=== PATIENT | female | born 2000 | race African-American/Black ===

== ENCOUNTER 2022-11-25 15:22 | Outpatient (CLI) | payer OTHER, SELFPAY ==
[2022-11-25 18:03] LABS: HIV 1/2 Ab P24 Ag Result Negative (Negative)
[2022-11-25 18:50] LABS: Hepatitis B Surface Antigen Negative (Negative)
[2022-11-25 18:54] LABS: HAV RESULT Negative (Negative); Hepatitis B Core IgM Result Negative (Negative)
[2022-11-25 19:11] LABS: Hepatitis C Virus Antibody Negative (Negative)
[2022-11-26 14:19] LABS: Rapid Plasma Reagin Non-Reactive (NonReactive)
== END 2022-11-25 15:23 | disposition home or self-care (01) ==
LOC: ANHLAB 15:24
PROVIDERS: Visit Provider Obstetrics & Gynecology
DX: Z20.2 Contact with and (suspected) exposure to infections with a predominantly sexual mode of transmission (principal)
CPT/HCPCS: 36415; 80074; 86592; 86695; 86696; 86703; G0432

== ENCOUNTER 2024-06-29 09:55 | Outpatient (CLI) | payer OTHER, SELFPAY ==
--- OUTSIDE RECORDS SUMMARY | 2024-06-29 10:00 | XMS_ITS | Clinical Summary ---
Author Organization [facility] Address [address] [place] [address] Care Team Providers Care General Office Dispatcher Name Role Phone Braeden Fuentes MD Primary Care Provider [phone] Source Comments [facility],non-owned Affiliates and Associated Physician Practices is amultiple site organization consisting of ambulatory clinics and hospital sitesin [place], [place], [place] and [place]. This disclosure is being madepursuant to the Care Everywhere program and may not contain all information available regarding this patient. Last updated 17.[facility] [employer] Allergies No known active allergies Medications * This document contains information received from the source organization and may not represent a complete record from that organization. * Be aware that medications may not be up to date on this document. Alwaysverify current medications with the patient. acetaminophen (TYLENOL) 325 MG tablet Take 2 Tabs by mouth every 4 hours as needed for Fever or Pain Maximum allowable Acetaminophen amount = 4 Grams (4000 mg) / 24 hours. 120 Tab 0 5 Active ibuprofen (MOTRIN) 400 MG tablet Take 400 mg by mouth every 6 hours as needed for Pain Active ergocalciferol (DRISDOL) 1.25 MG (43004 UT) capsuleIndicat ions:Vitamin D Deficiency Take 1 capsule by mouth every 7 days Reasons: Vitamin D Deficiency 4 capsule 2 9 Active TOMASZ 0.25-35 MG-MCG tablet TAKE 1 TABLET BY MOUTH ONCE DAILY. TAKE ONLY 4 OF THE PLACEBOS PILLS 28 tablet 12/02/202 0 Active Active Problems Problem Noted Date Diagnosed Date Obesity 04/28/2016 Assessment & Plan (04/28/2016 8:21 AM CDT): Weight and BMI >99th %tile. Plan: Discussed healthy diet and exercise with patient. Discussed starting with some daily exercise a few minutes a day and then building on this to add more time (walking, taking stairs, etc) Discussed cutting out sugary drinks, fast food and fried foods. Will continue to monitor. PCOS (polycystic ovarian syndrome) 04/27/2016 Assessment & Plan (04/27/2016 4:11 PM CDT): History of PCOS, well controll with OCP's Plan: Will recheck total testosterone, free testosterone, hgb A1c, lipid panel and H & H today Refill for OCP's sent to pharmacy Dysmenorrhea 04/27/2016 Assessment & Plan (04/27/2016 4:12 PM CDT): Pt reports moderate cramping with nausea with periods. Plan: Rx for naproxen 500mg BID PRN sent to pharmacy, patient to start medication on the day prior to the start of her menses Will check vitamin D level today Vitamin D deficiency 08/29/2014 Assessment & Plan (08/29/2014 12:45 PM CDT): Assessment: 13 y/o with menometorrhagia, anemia, vitD deficiency Plan: -50,000 IU vitD once weekly x 6 weeks Excessive vaginal bleeding 08/27/2014 Assessment & Plan (08/29/2014 4:17 PM CDT): Assessment: Nehemiah Rock is a 13 yo previously healthy female who presented with 2 weeks of heavy menstrual flow. Menarche was one year ago and has been predictable monthly with 3 days of flow 2 pads/day. Her last two periods had prolonged bleeding. Denies history of sexual intercourse and does not take contraceptives. No history of bleeding problems or family history of bleeding disorders. No family history of uterine cancer, thyroid disorders, PCOS, or DM2. Differential for abnormal uterine bleeding includes polyps, adenomyositis, leiomyomata, malignancy/hyperplasia, coagulopathy, ovulatory dysfunction, endometrial, iatrogenic, and not otherwise specified. - coagulation labs show decreased PTT with normal PT, vWF panel is pending - pelvic ultrasound suggests presence of endometrial polyp vs blood clot, no adnexal masses noted, ovaries not abnormally polycystic - Given weight, acanthosis, and irregularity of periods she may have PCOS which can cause prolonged menstrual bleeding Plan: - adolescent medicine consulted, recommendations appreciated - follow up on vWF panel, Free and total testosterone, DHEAS - provide vitamin D supplement for low levels - provide second daily dose of Ovral tonight and then continue once daily starting tomorrow - schedule zofran for management of nausea - Discharge today with follow up Hgb/Hct in 1 weeks and follow up with adolescent on 09/[address] Brantley. Assessment & Plan (08/29/2014 12:44 PM CDT): Assessment: 13 y.o female with no significant PMHx presenting with prolonged vaginal bleeding and a severe microcytic anemia. Patient reports normal menstrual periods for the past year but endorses occasional heavy bleeding and irregularities in her cycle. A potential cause of her bleeding is anovulatory cycle secondary to PCOS as she does have obese body habitus and acanthosis, both consistent with this diagnosis. Bleeding disorder is unlikely as she has no history of excessive bleeding and PT/PTT were WNL. Her hemoglobin continues to fall despite her bleeding slowing down and her treatment with ethinyl estradiol. Received 2 units PRBC overnight. Plan: -Per adolescent medicine recommendations: -Check: Vitamin D 25-0H, total and free testosterone, TSH, and DHEAS -Check urine GC + Chlamydia -consulted adolescent medicine -norgestrel ethinyl estradiol 0.5-50mcg in AM (BID for 24 hours after bleeding stops) -PRN Zofran IV for nausea secondary to high-dose estrogen -Von Willebrand profile pending Assessment & Plan (08/28/2014 7:09 PM CDT): Assessment: 13 y.o female with no significant PMHx presenting with prolonged vaginal bleeding and a severe microcytic anemia. Patient reports normal menstrual periods for the past year but endorses occasional heavy bleeding and irregularities in her cycle. A potential cause of her bleeding is anovulatory cycle secondary to PCOS as she does have obese body habitus and acanthosis, both consistent with this diagnosis. Bleeding disorder is unlikely as she has no history of excessive bleeding and PT/PTT were WNL. Her hemoglobin continues to fall despite her bleeding slowing down and her treatment with ethinyl estradiol. Plan: -Per adolescent medicine recommendations: -Check: Vitamin D 25-0H, total and free testosterone, TSH, and DHEAS -Check urine GC + Chlamydia -Transfusing 2 units packed RBCs for low Hb -consulted adolescent medicine -stop estradiol, give norgestrel ethinyl estradiol 0.5-50mcg once tonight and once tomorrow AM -Patient may need BID until bleeding stops, can give up to q8hrs -PRN Zofran IV for nausea secondary to high-dose estrogen -Von Willebrand profile pending Assessment & Plan (08/28/2014 6:16 PM CDT): Assessment: 13 y/o female with prolonged vaginal bleeding for the past 2 weeks with history of previously normal menses. Most likely etiologies on the differential diagnosis in this patient would be dysfunction uterine bleeding or PCOS, especially as patient is obese and has acanthosis on exam. related complications ruled out with negative serum HCG. Bleeding disorders or coagulopathies also possible, though less likely given negative history of previous bleeding problems. Infection unlikely as patient is not currently having fever, abdominal pain, dysuria, or abnormal vaginal discharge. Also, CBC with normal WBC count. Other possibilities include ovarian cysts, cervical polyps, or malignancies. Plan: -admit to purple team -will start norethindrone-ethinyl estradiol (35 mcg estradiol which is lowest formulation of estradiol available on formulary) BID until bleeding cessation. Would then plan to continue on oral contraceptives once/day. -If persistent bleeding despite therapy can increase frequency of dose -zofran PRN IV while on high doses of estrogen for nausea/emesis -will draw coag panel and Von Willebrand profile to look for other causes of prolonged bleeding -consider adolescent medicine consult in AM Assessment & Plan (08/28/2014 3:21 PM CDT): Assessment: Nehemiah Rock is a 13 yo previously healthy female who presented with 2 weeks of heavy menstrual flow. Menarche was one year ago and has been predictable monthly with 3 days of flow 2 pads/day. Her last two periods had prolonged bleeding. Denies history of sexual intercourse and does not take contraceptives. No history of bleeding problems or family history of bleeding disorders. No family history of uterine cancer, thyroid disorders, PCOS, or DM2. Differential for abnormal uterine bleeding includes polyps, adenomyositis, leiomyomata, malignancy/hyperplasia, coagulopathy, ovulatory dysfunction, endometrial, iatrogenic, and not otherwise specified. - coagulation labs show decreased PTT with normal PT, vWF panel is pending - pelvic ultrasound suggests presence of endometrial polyp vs blood clot, no adnexal masses noted, ovaries not abnormally polycystic Plan: - consult adolescent medicine - follow up on vWF panel - continue norethindrone-ethinyl estradiol 1mg-35mcg BID to help stop uterine bleeding - schedule zofran for management of nausea - consider drawing TSH/free T4, FSH, LH to evaluate for thyroid abnormalities and PCOS Assessment & Plan (08/27/2014 11:42 PM CDT): Assessment: 13 y/o female with prolonged vaginal bleeding for the past 2 weeks with history of previously normal menses. Most likely etiologies on the differential diagnosis in this patient would be dysfunction uterine bleeding or PCOS, especially as patient is obese and has acanthosis on exam. related complications ruled out with negative serum HCG. Bleeding disorders or coagulopathies also possible, though less likely given negative history of previous bleeding problems. Infection unlikely as patient is not currently having fever, abdominal pain, dysuria, or abnormal vaginal discharge. Also, CBC with normal WBC count. Other possibilities include ovarian cysts, cervical polyps, or malignancies. Plan: -admit to purple team -will start norethindrone-ethinyl estradiol (35 mcg estradiol which is lowest formulation of estradiol available on formulary) BID until bleeding cessation. Would then plan to continue on oral contraceptives once/day. -If persistent bleeding despite therapy can increase frequency of dose -zofran PRN IV while on high doses of estrogen for nausea/emesis -will draw coag panel and Von Willebrand profile to look for other causes of prolonged bleeding -consider adolescent medicine consult in AM Microcytic anemia 08/27/2014 Assessment & Plan (08/29/2014 4:21 PM CDT): Assessment: Nehemiah has had 2 weeks of heavy menstrual flow with complaints of light headedness and headaches. Her Hgb/Hct dropped from 5.2/18.4 to 4.8/16.9 after which she was transfused with two units of blood. She recovered to 7.9/25.7 overnight. Vital signs have been within normal limits thoroughout the day and patient appears to be feeling much better. She is anemic with an MCV of 65.9 indicating that she has a microcytic anemia. Most commonly these are caused by iron deficiency though anemia of chronic disease, thalassemia, and sideroblastic anemia should be considered on the differential. Blood loss also contributes to the anemia. Plan: - continue iron supplementation 325mg daily for 3 months - repeat Hgb/Hct in one week as outpatient - follow up with adolescent health Assessment & Plan (08/29/2014 12:44 PM CDT): Assessment: 13 y/o female with microcytic anemia most likely secondary to blood loss from prolonged menses. She is asymptomatic here but did complain of dizziness and light-headedness at OSH. Plan: -transfused 2 units PRBCs -Ferrous sulfate 325 mg BID Assessment & Plan (08/28/2014 7:05 PM CDT): Assessment: 13 y/o female with microcytic anemia most likely secondary to blood loss from prolonged menses. She is asymptomatic here but did complain of dizziness and light-headedness at OSH. Plan: -transfusing 2 units PRBCs -repeat H&H in AM -Ferrous sulfate 325 mg BID Assessment & Plan (08/28/2014 6:16 PM CDT): Assessment: 13 y/o female with symptomatic microcytic anemia most likely secondary to blood loss from prolonged menses. Symptomatic at OSH but received 1L NS bolus and now asymptomatic with normal HRs, blood pressures, and normal orthostatic vital signs. Plan: -CBC now -type/cross match 2 units PRBCs. If patient develops further symptoms such as light-headedness, headache, dizziness, tachycardia, or orthostatic vital signs, will plan on transfusing 2 units PRBCs -will start estrogen therapy (see separate problem) -repeat H&H in AM -will start supplemental iron therapy -no IVF at this point as patient taking good PO intake so far since admission Assessment & Plan (08/28/2014 3:40 PM CDT): Assessment: Nehemiah has had 2 weeks of heavy menstrual flow with complaints of light headedness and headaches. Her Hgb/Hct has dropped from 5.7/20.1 to 5.2/18.4 but has remained without headaches and dizziness since admission. Her oxygen saturation is 99% on room air and her heart rate has been within normal limits. She has not received blood producs but had a 1L NS bolus at OSH. BP has been stable WNL. She is anemic with an MCV of 65.9 indicating that she has a microcytic anemia. Most commonly these are caused by iron deficiency though anemia of chronic disease, thalassemia, and sideroblastic anemia should be considered on the differential. Blood loss also contributes to the anemia. Plan: - continue iron supplementation 325mg daily for 3 months - repeat Hgb/Hct this afternoon and tomorrow morning to monitor extent of anemia - transfuse 1-2 units pRBC if hgb below 5 or if below 7 with symptoms such as orthostasis, dyspnea, light headedness Assessment & Plan (08/27/2014 11:45 PM CDT): Assessment: 13 y/o female with symptomatic microcytic anemia most likely secondary to blood loss from prolonged menses. Symptomatic at OSH but received 1L NS bolus and now asymptomatic with normal HRs, blood pressures, and normal orthostatic vital signs. Plan: -CBC now -type/cross match 2 units PRBCs. If patient develops further symptoms such as light-headedness, headache, dizziness, tachycardia, or orthostatic vital signs, will plan on transfusing 2 units PRBCs -will start estrogen therapy (see separate problem) -repeat H&H in AM -will start supplemental iron therapy -no IVF at this point as patient taking good PO intake so far since admission Family History Medical History Relation Name Comments Type 2 Diabetes Mellitus Maternal Aunt sh e states that she can not get Type 2 Diabetes Mellitus Maternal Grandmother Menstrual issues Mother Other Paternal Grandmother small tumor on brain per father Asthma Neg Hx Inflammatory Bowel Disease Neg Hx Relation Name Status Comments Maternal Aunt Maternal Grandmother Mother Paternal Grandmother Social History Tobacco Use Types Packs/Day Years Used Date Smoking Tobacco: Never Smokeless Tobacco: Never Tobacco Cessation:Counseling Given: No Alcohol Use Standard Drinks/Week Comments No 0 (1 standard drink = 0.6 oz pur e alcohol) Comments No Sex and Gender Information Value Date Recorded Sex Assigned at Not on file Legal Sex Female 5:40 AM IMPLEMENTATION MANAGER Gender Identity Not on file Sexual Orientation Not on file Last Filed Vital Signs Vital Sign Reading Time Taken Comments Blood Pressure 122/64 03/06/2019 2:02 PM IMPLEMENTATION MANAGER Pulse 68 03/06/2019 2:02 PM IMPLEMENTATION MANAGER Temperature 36.7 C (98 F) 10/30/2016 3:21 PM CDT Respiratory Rate 18 01/08/2019 11:1 1 AM IMPLEMENTATION MANAGER Oxygen Saturation 99% 10/05/2014 4:13 PM CDT Inhaled Oxygen Concentration - - Weight 116.3 kg (256 lb 6.3 oz) 03/06/2019 2:02 PM IMPLEMENTATION MANAGER Height 163.5 cm (5' 4.37 ) 03/06/2019 2:02 PM CS T Body Mass Index 43.51 03/06/2019 2:02 PM IMPLEMENTATION MANAGER Plan of Treatment Health Maintenance Due Date Last Done Comments HPV VACCINE (1 - 3-dose series) 11/22/2014 HEPATITIS C SCREENING 11/18/2017 DTAP/TDAP/TD VACCINES (1 - Tdap) 11/22/2018 HEPATITIS B VACCINE (1 of 3 - 19+ 3-dose series) 11/22/2018 CHLAMYDIA/GONORRHEA SCREENING 01/09/2020, 10/26/2016, 08/29/2014 COVID-19 VACCINE (1 - 2023-2 5 season) 2023 DEPRESSION SCREENING 02/08/2024 INFLUENZA VACCINE (Season Ended) 2024 ZOSTER VACCINE (1 of 2) 11/22/2049 HIV SCREENING Completed 01/08/2019 HIB VACCINE Aged Out No longer eligi ble based on patient's age to complete this topic MENINGOCOCCAL (Group B) VACCINE SHARED DECISION-MAKING Aged Out No longer eligible based on patient's age to complete this topic MENINGOCOCCAL GROUPS A/C/Y/W VACCINE Aged Out No longer eligible b ased on patient's age to complete this topic PNEUMOCOCCAL VACCINE Aged Out No long er eligible based on patient's age to complete this topic Procedures Procedure Name Priority Date/Time Associated Diagnosis Comments HIV-1 HIV-2 ANTIBODY + HIV P24 AG PANEL Routine 01/08/2019 12:13 PM IMPLEMENTATION MANAGER Menorrhagia with irregular cycle CHLAMYDIA + GC AMPLIFIED PROBE Routine 01/08/2019 12:00 PM IMPLEMENTATION MANAGER Menorrhagia with irregular cycle from Last 3 Months or Most Recently Relevant to Health Maintenance Results * HIV-1 HIV-2 ANTIBODY + HIV P24 AG PANEL (01/08/2019 12:13 PM IMPLEMENTATION MANAGER) HIV1/2 Ab + P24 Ag Non Reactive Non Reactive 01/08/2019 1:48 PM IMPLEMENTATION MANAGER [facility] Blood BLOOD SPECIMEN / Unknown Lab Venipuncture / Unknown 01/08/2019 12:13 PM IMPLEMENTATION MANAGER 01/08/2019 12:50 PM IMPLEMENTATION MANAGER Narrative [facility] - 01/08/2019 1:48 PM IMPLEMENTATION MANAGER No Laboratory evidence of HIV infection. Sheeba Brantley MD LAB - CHEMISTRY ORDERA BLES Final Result Performing Organization Address City/[facility]/ZIP Co de Phone Number [facility] [address] [place] [phone] * CHLAMYDIA + GC AMPLIFIED PROBE (STL) (01/08/2019 12:00 PM IMPLEMENTATION MANAGER) Pathologist [facility] Chlamydia Amplified Probe Negative Negative 01/09/2019 2:17 PM IMPLEMENTATION MANAGER [facility] GC Amplified Probe Negative Negative 01/09/2019 2:17 PM IMPLEMENTATION MANAGER [facility] Microbiology URINE / Unknown Collection / Unknown 01/08/2019 12:00 PM IMPLEMENTATION MANAGER 01/08/2019 12:03 PM IMPLEMENTATION MANAGER Narrative [facility] - 01/09/2019 2:17 PM IMPLEMENTATION MANAGER Results based on detection/no detection of ribosomal RNA by amplified method. Sheeba Brantley MD LAB - MICROBIOLOGY ORD ERABLES Final Result Performing Organization Address City/[facility]/ZIP Co de Phone Number [facility] [address] [place], [place] [address], [facility] [phone] from Last 3 Months or Most Recently Relevant to Health Maintenance Insurance [facility] Address: [address] [phone] [facility] Advance Directives * Full Code (Latest Code Status on File) Date Activated Date Inactivated Comments 08/27/2014 9:36 PM 08/29/2014 5:01 PM Care Teams General Office Dispatcher Relationship Specialty Start Date End Date Braeden Fuentes MD [address] [place] [address] PCP - General Pediatrics 08/27/14
--- OUTSIDE RECORDS SUMMARY | 2024-06-29 10:00 | XMS_ITS | Continuity of Care Document ---
Author Organization [facility] Address [address] [place] [address] [address] [place] [address] Phone Care Team Providers Care Nutritional Services Host Name Role Phone Rajan OD, Carlos Unavailable Unavailable Procedures Procedure Date Eye Exam, New Patient Refraction Advance Directives Directive Yes / No Effective Date File Name No Information Encounters Encounter Description Practice Location Reason(s) For Visit Diagnoses Date Provider Providers Copied on Encounter [facility], [address] [place], [place], [id number], [place] tel:[phone] [facility] No Information [phone] Rajan OD Carlos. [address] , [address], [place], [address], [place]. tel:[phone] Family History Family Member Type Diagnosis Age At Onset No Information Payers Payer name Insurance type Covered libertarian ID Authoriza tion(s) Medicaid [facility] [id number] Social History Type Description Quantity Date Captured Comments Sex Female Smoking Status No Information Chief Complaint And Reason For Visit No Information Reason For Referral Reason For Referral No Information History Of Present Illness Encounter Date Complaint History Of Prese nt Illness No Information Functional Status Date Functional Assessmen t No Information Instructions Date Instruction Additional Infor mation No Information Assessments Type Assessment Date No Information Patient Care Teams Name Effective Dates (start - stop) Status Members No Information
--- OUTSIDE RECORDS SUMMARY | 2024-06-29 10:00 | XMS_ITS | Encounter Summary ---
Author Organization [facility] Address [address] [facility] [place] [address] Care Team Providers Care Rubber Mill Tender Name Role Phone Braeden Fuentes MD Primary Care Provider Encounter Details Date Type Department Care Team (Late st Contact Info) Description 07/03/2019 Telephone [facility] Pediatrics - Pulmonology [address] [place] [phone] Beatriz Tillman Social History Tobacco Use Types Packs/Day Years Used Date Smoking Tobacco: Never Smokeless Tobacco: Never Alcohol Use Standard Drinks/Week Comments No 0 (1 standard drink = 0.6 oz pur e alcohol) Comments No Sex and Gender Information Value Date Recorded Sex Assigned at Not on file Legal Sex Female 5:40 AM WASTEWATER PROJECT ENGINEER Gender Identity Not on file Sexual Orientation Not on file documented as of this encounter Functional Status * Is person deaf or have serious hearing difficulty? Answer Date of Assessment Author No 08/29/2014 3:29 PM Jocelyne Robison RN * Is person blind or have serious difficulty seeing? Answer Date of Assessment Author No 08/29/2014 3:29 PM Jocelyne Robison RN * Does person have serious difficulty walking/climbing stairs? Answer Date of Assessment Author No 08/29/2014 3:29 PM Jocelyne Robison RN * Does person have difficulty dressing/bathing? Answer Date of Assessment Author No 08/29/2014 3:29 PM Jocelyne Robison RN * Does person have difficulty doing errands alone? Answer Date of Assessment Author No 08/29/2014 3:29 PM CDT Jocelyne Tong RN documented as of this encounter Mental Status * Does person have difficulty concentrating/remembering/making decisions? Answer Entry Date Author No 08/29/2014 3:29 PM CDT Jocelyne Tong RN documented in this encounter Miscellaneous Notes * Telephone Encounter - Sheeba Brantley MD - 07/03/2019 3:09 PM CDT Changed to JUAN FRANCISCO from Depo - known PCOS w/ menstrual irreg Now on pack #3, using only 4 placebos menses start w/ placebo but last 7 - 10 days, heavy for 5 of those days, passes clots No signs / sx of anemia Will change to sl higher estrogen dose. To call if menses persist longer than 7 days or if signs of anemia Orders Placed This Encounter ??? norgestimate-ethinyl estradiol (ORTHO-CYCLEN; MONONESSA; PREVIFEM; SPRINTEC) 0.25-35 MG-MCG tablet May transfer care to local tissue inserter. * Telephone Encounter - Beatriz Tillman - 07/03/2019 10:13 AM CDT Questions about continuing current control, please call documented in this encounter Plan of Treatment Not on file documented as of this encounter Visit Diagnoses Not on filedocumented in this encounter Care Teams Rubber Mill Tender Relationship Specialty Start Date End Date Braeden Fuentes MD [address] [place] [phone] PCP - General Pediatrics 08/27/14 documented as of this encounter
[2024-06-29 10:24] LABS: Basophils Absolute Auto 0.1 K/mm3 (0.0-0.1); Basophils Percent Auto 0.7 % (0.2-1.2); Eosinophils Absolute Auto 0.2 K/mm3 (0-0.3); Eosinophils Percent Auto 2.3 % (0-4.4); Hematocrit 42.6 % (37.0-47.0); Hemoglobin 13.2 g/dL (12.0-15.0); Immature Granulocyte Absolute 0.03 K/mm3 (0.00-0.031); Immature Granulocyte Percent A 0.4 % (0-0.5); Lymphocytes Absolute Auto 1.77 K/mm3 (0.9-3.2); Lymphocytes Percent Auto 23.8 % (18.3-44.2); Mean Corpuscular Hemoglobin 26.5 pg (26-34); Mean Corpuscular Volume 85.4 fl (80-100); Mean Platelet Volume 10.8 fl (7.4-10.4); Monocytes Absolute Auto 0.7 K/mm3 (0.1-0.6); Monocytes Percent Auto 9.1 % (2.6-8.5); Neutrophils Absolute Auto 4.8 K/mm3 (1.3-6.7); Neutrophils Percent Auto 63.7 % (45.5-73.1); Platelet Count Result 335 k/mm3 (150-375); Red Blood Count 4.99 M/mm3 (4.2-5.4); Red Cell Distribution Width 13.2 % (11.5-14.5); White Blood Count 7.5 K/mm3 (4.5-10.0)
[2024-06-29 10:39] LABS: Iron 59 ug/dL (37-170)
[2024-06-29 10:49] LABS: Percent Iron Saturation 13 % (20-50)
[2024-06-29 10:52] LABS: Beta HCG Quantitative < 2.39 mIU/ML
[2024-06-29 11:08] LABS: Syphilis IgG/IgM Antibody Negative (Negative)
[2024-06-29 11:15] LABS: HIV 1/2 Ab P24 Ag Result Negative (Negative)
[2024-06-29 11:40] LABS: Hepatitis B Surface Antigen Negative (Negative)
[2024-06-29 11:46] LABS: HAV RESULT Negative (Negative); Hepatitis B Core IgM Result Negative (Negative)
[2024-06-29 11:58] LABS: Hepatitis C Virus Antibody Negative (Negative)
== END 2024-06-29 09:56 | disposition home or self-care (01) ==
LOC: ANHLAB 09:57
PROVIDERS: PCP Family Medicine; Visit Provider Obstetrics & Gynecology
DX: N92.6 Irregular menstruation, unspecified (principal); Z20.2 Contact with and (suspected) exposure to infections with a predominantly sexual mode of transmission
CPT/HCPCS: 36415; 80074; 83540; 83550; 84702; 85025; 86593; 86695; 86696; 86703; G0432